=== PATIENT | male | born 1935 | race Caucasian/White ===

== ENCOUNTER → 2016-10-09 | Outpatient (CLI) | payer MEDICARE, BC ==
[~2016-10-09] MED LIST: AMLODIPINE BESYL5 MG PO; ASPIRIN; ASPIRIN325 M1 PO; ATENOLOL; ATENOLOL PO; ATENOLOL25 MG PO; ATENOLOL50 MG PO; BAYER ASPIRIN325 M1 PO; BENICAR HCT 40-1 TA1; CELEBREX100 MG PO; CELECOXIB200 MG PO; CIPRO250 MG PO; DIOVAN HCT 3201 EACH PO; FLAGYL; IBUPROFEN400 MG PO; KCL; KCL PO; LANSOPRAZOLE30 M2 PO; LEVAQUIN; LIBRIUM PO; LOVAZA1 G PO; MORGIDOX100 MG PO; MULTI VITAMIN1 EACH PO; MULTI-VITAMIN1 TAB PO; MULTIPLE VITAMI1 T11 PO; NASONEX17 GM; NEXIUM; NEXIUM PO; NORCO1 TAB 10/3 PO; NORVASC PO; PERSERVISION PO; TRI-VI-SOL50 ML PO; TRICOR; TYLOX 5/500 CAP1 CAP PO; VALSARTAN-HCTZ1 EAC3 PO; [UNRECOGNIZED DRUG - OTHER] PO; [UNRECOGNIZED DRUG - OTHER] PO
--- NOTE | ~2016-10-09 | CT14 ---
[facility] A Service of [facility] RADIOLOGY TEXT RESULTS PATIENT: ZEN RAMIREZ LOCATION: [facility] : 31 UNIT #: [id number] AGE: [address]: Eleazar Barajas MD SEX: M ORDER DR: [id number] [facility] [address] [place], [place] [address] [id number] O MR#: [id number] [facility] #: [id number] NAME: ZEN RAMIREZ. : 1935 SEX: M STUDY DATE/TIME: 10/09/2016 14:39 UNIT: [facility] ROOM: STUDY DESCRIPTION: CT Angio Abdomen and Pelvis Attending Physician: Eleazar Barajas M.D. Ordering Physician: Eleazar Barajas M.D. Primary Care Physician: Ben Short M.D. MEDICAL IMAGING REPORT This report is preliminary unless electronic signature is present EXAM CTA of the abdomen pelvis with IV contrast. DATE OF EXAM 10/09/2016 HISTORY Abdominal aneurysm follow up. No current complaints. Family history of abdominal aortic aneurysm. Additional history of iliac stent, coronary artery stents, hernia, appendectomy, hypertension. COMPARISON CT abdomen and pelvis without contrast, 02/19/2015. PROCEDURE 2 mm axial images from the lung bases through the upper thighs after IV contrast administration in the arterial phase. 3-D reformatted images were obtained at a dedicated workstation. TECHNIQUE This CT exam was performed with one or more of the following radiation dose reduction techniques: automatic exposure control, adjustment of mA and/or kV according to patient size, and iterative reconstruction. FINDINGS ARTERIAL ANATOMY: The imaged distal descending thoracic aortic caliber is borderline aneurysmal measuring 3.1 cm with mild atherosclerotic plaquing. The abdominal aorta demonstrates focal fusiform aneurysmal dilation in its immediate infrarenal segment up to 3.0 cm, unchanged from 2015. Moderately advanced calcific atherosclerotic features are seen within the abdominal aorta without flow limitation. No aortic dissection is identified. 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 Mild atherosclerotic plaquing is seen at the origins of single bilateral renal arteries, and at the origin of the SMA without flow-limiting stenosis. BOB is patent. The right common iliac artery stent is in place. There is aneurysmal dilation of the proximal right common iliac artery near the takeoff of the stent, this aneurysm is thought to measure about 2.2 cm. It is thought to be unchanged in caliber when compared to the noncontrast study of 02/19/2015. The aneurysm sac extends nearly the length of the stent to the common iliac bifurcation, with thrombosis along the inferior margin of the aneurysm. 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 Bilateral internal iliac arteries demonstrate moderately advanced atherosclerotic disease, and there is focal ectasia of the proximal left internal iliac artery up to 1 cm. External iliac arteries and common femoral arteries demonstrate moderate atherosclerotic plaquing without flow-limiting stenosis. There is mild atherosclerotic plaquing in the proximal left SFA. Right SFA remains patent. ADDITIONAL ABDOMEN FINDINGS: Advanced emphysematous changes are present in the lung bases. There is some linear scarring or atelectasis in the lingular segment of left upper lobe. Presumed stent in the right coronary artery. Tiny low-density lesion left hepatic lobe measures 6 mm, unchanged from prior, thought to represent a cyst. The gallbladder, spleen, pancreas, are normal. Nonobstructing right renal stone. Left renal cyst. Mild thickening of left adrenal gland unchanged from prior exam, likely representing benign hyperplasia. ADDITIONAL PELVIS FINDINGS: Advanced diverticular changes seen in the sigmoid colon without evidence of acute diverticulitis. There is mild concentric thickening of the urinary bladder which may be due to incomplete distension or chronic outlet obstruction. Prostate gland appears mildly enlarged. There are signs of presumed bilateral inguinal hernia repair. IMPRESSION 1. Stable borderline fusiform infrarenal abdominal aortic aneurysm up to 3.0 cm. 2. 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 3. Moderately advanced calcific atherosclerosis within the abdominal aorta without dissection. 4. 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 The right common iliac artery STS. [facility] A Service of [facility] RADIOLOGY TEXT RESULTS PATIENT: ZEN RAMIREZ LOCATION: [facility] #: [id number] : 31 UNIT #: [id number] AGE: [address]: Eleazar Barajas MD SEX: M ORDER DR: stent is seen, and the stented segment appears patent. 5. Focal ectasia of the left common bile artery. 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 6. Moderate atherosclerotic plaquing within the bilateral external iliac and common femoral arteries without high-grade or flow-limiting stenosis identified. 7. 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 The continuing celiac artery appears opacified and patent. 8. Emphysema. 9. Coronary artery calcifications. Correlate with cardiac history. 10. Left renal cysts, nonobstructing right renal stone. Probable tiny hepatic cysts. 11. Advanced uncomplicated colonic diverticulosis. 12. Urinary bladder wall thickening is nonspecific and could be related to chronic bladder outlet obstruction, given the appearance of mild prostatic enlargement, or may simply be due to incomplete distension. 13. Presumed bilateral inguinal hernia repair. Dictated by... Hoa Meraz M.D. THIS IS AN ELECTRONICALLY VERIFIED REPORT Hoa Meraz M.D. at 10/11/2016 12:05 AM DAISY/mary TD: 10/09/2016 18:21 JOB #: [id number] MEDICAL IMAGING REPORT Page 1 of 1 COPY
[2016-10-09 17:50] LABS: POC - GFR >60.0 mL/min (>60)
== END | disposition home or self-care (01) ==
LOC: CCAT 12:56
PROVIDERS: Internal Medicine Cardiovascular Disease
DX: I71.4 Abdominal aortic aneurysm, without rupture (principal); I70.0 Atherosclerosis of aorta; I77.819 Aortic ectasia, unspecified site; I72.3 Aneurysm of iliac artery; I70.8 Atherosclerosis of other arteries; J43.9 Emphysema, unspecified; I25.10 Atherosclerotic heart disease of native coronary artery without angina pectoris; N20.0 Calculus of kidney; N28.1 Cyst of kidney, acquired
CPT/HCPCS: 74174; 82565; Q9967